=== PATIENT | male | born 1935 | race Caucasian/White ===

== ENCOUNTER → 2018-06-05 13:07 | Outpatient (CLI) | payer MEDICARE, OTHER, SELFPAY ==
--- NOTE | 2018-06-05 | DI.RAD.S_ITS ---
PROCEDURE: XR CHEST 2V INDICATIONS: COUGH TECHNIQUE: 2 views of the chest were acquired. COMPARISON: None. FINDINGS: Surgical changes and devices: None. Lungs and pleura: No pleural effusions or pneumothorax. Lungs are clear. There is a 4.3 cm soft tissue mass overlying the left vertebral phrenic angle, likely diaphragmatic eventration or hiatal hernia. There is lobular eventration of the right hemidiaphragm. Mediastinum: Mediastinal contours are normal. Heart size is normal. Aortic calcifications. Bones and chest wall: No suspicious bony abnormalities. The dorsal spondylosis. Soft tissues appear unremarkable. IMPRESSION: 1. No acute cardiopulmonary abnormality. 2. 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 3. DISH Dictated by: Jon Smith M.D. on 06/05/2018 at 14:37 Approved by: Jon Smith M.D. on 06/05/2018 at 14:39
== END ==
PROVIDERS: Visit Provider Internal Medicine
DX: R05 Cough (principal); M48.10 Ankylosing hyperostosis [Forestier], site unspecified
CPT/HCPCS: 71046

== ENCOUNTER → 2018-06-13 07:38 | Outpatient (CLI) | payer MEDICARE, OTHER, SELFPAY ==
--- NOTE | 2018-06-13 | DI.CT.S_ITS ---
PROCEDURE: CT CHEST W CON INDICATIONS: COUGH TECHNIQUE: After the administration of intravenous contrast, 5 mm thick sections acquired from the pulmonary apices to the posterior costophrenic angles. 7 mm thick coronal and sagittal MIP reformats were acquired. For radiation dose reduction, the following was used: automated exposure control, adjustment of mA and/or kV according to patient size. COMPARISON: [facility], CR, ABDOMEN 1 VIEW, 04/13/2010, 10:36. [facility], US, ABDOMEN COMPLETE, 03/31/2010, 12:59. [facility], CR, L-SPINE 2-3 VIEWS, 01/05/2010, 12:38. [facility], CT, CT-IVP, 04/13/2010, 10:29. [facility], CR, XR CHEST 2V, 06/05/2018, 12:53. FINDINGS: Image quality: Excellent. Lungs and pleura: No acute air space opacities. The radiodensity at the medial left lung base of recent plain film concern from chest x-ray 06/05/18 represents a eventration of fatty soft tissue is through a small diaphragmatic defect at the posterior medial aspect of the left diaphragm, extending cephalad into the pleural space as a result. This was previously present also a CT IVP to a slightly lesser degree 04/13/10. No pleural effusions or pneumothorax. Central and peripheral airways are patent and normal in caliber. Mediastinum: Heart size is normal. No pericardial effusion. No mediastinal or hilar adenopathy by size criteria. Thoracic aorta and central pulmonary arteries are normal in size. Esophagus is normal in caliber. No hiatal hernia. Bones and chest wall: No suspicious bony lesions. No vertebral body compression fractures. No axillary or supraclavicular adenopathy by size criteria. Thyroid gland appears normal where well visualized. Abdomen: Visualized upper abdominal solid organs appear normal except for the presence of slightly increased hydronephrosis on the left when compared to the 04/13/10 study, and stable appearing peripelvic cysts on the right. Upper abdominal bowel loops are normal in caliber. 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 No inflammation is associated, but no neoplasm is found, and this finding is only slightly increased from the comparison CT from March of 2010. Slight interval increase in moderate hydronephrosis on the left and peripelvic cysts on the right with reference to the prior CT scanning from 2009. Renal cortical thinning is not associated. 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 Dictated by: Kumar Castillo M.D. on 06/13/2018 at 12:34 Approved by: Kumar Castillo M.D. on 06/13/2018 at 12:44
== END ==
PROVIDERS: Visit Provider Internal Medicine
DX: R05 Cough (principal); N28.1 Cyst of kidney, acquired; N13.1 Hydronephrosis with ureteral stricture, not elsewhere classified
CPT/HCPCS: 71260; Q9967

== ENCOUNTER → 2022-02-21 08:35 | Outpatient (CLI) | payer MEDICARE, OTHER, SELFPAY ==
[2022-02-21 09:50] LABS: Add Manual Diff / Slide Review NO; Basophils Absolute Auto 0 /uL (0-100); Basophils Percent Auto 0.4 % (0-2); Eosinophils Absolute Auto 100 /uL (0-450); Eosinophils Percent Auto 2.6 % (2-4); Hematocrit 37.7 % (41-53); Hemoglobin 12.9 g/dL (13.5-17.5); Lymphocytes Absolute Auto 1000 /uL (1100-4500); Lymphocytes Percent Auto 25.8 % (25-40); Mean Corpuscular HGB Conc 34.1 % (30-36); Mean Corpuscular Hemoglobin 30.9 PG (26-34); Mean Corpuscular Volume 90.6 fL (80-100); Monocytes Absolute Auto 500 /uL (0-900); Monocytes Percent Auto 12.3 % (3-14); Neutrophils Absolute Auto 2200 /uL (1500-7000); Neutrophils Percent Auto 58.9 % (50-75); Platelet Count 176 X10^3/uL (150-400); Red Blood Cell Count 4.16 X10^6/uL (4.5-5.9); Red Cell Distribution Width 13.7 % (11.6-14.8); White Blood Cell Count 3.7 X10^3/uL (4.5-11.0)
[2022-02-21 10:00] LABS: Hemoglobin A1C% w Est Avg Glu 5.8 % (4.0-6.0)
[2022-02-21 10:32] LABS: Alanine Aminotransferase 20 IU/L (<50); Albumin 3.7 g/dL (3.5-5.0); Albumin Globulin Ratio 1.2 (1.0-2.8); Alkaline Phosphatase 65 U/L (38-126); Aspartate Aminotransferase 32 IU/L (17-59); BUN Creatinine Ratio 17.1 (6-22); Bilirubin Total 0.5 mg/dL (0.2-1.3); Blood Urea Nitrogen 22 mg/dL (9-20); Calcium 8.8 mg/dL (8.4-10.2); Carbon Dioxide 29 mmol/L (22-32); Chloride 107 mmol/L (98-107); Cholesterol 159 mg/dL (140-199); Estimated Glomerular Filt Rate 54 mL/min (>60); Glucose 109 mg/dL (80-110); HDL Cholesterol 53 mg/dL (40-60); HEMOLYSIS < 15 (0-50); LDL Cholesterol Calculated 90 mg/dL (<100); Sodium 141 mmol/L (137-145); Total Protein 6.7 g/dL (6.3-8.2); Triglycerides 80 mg/dL (35-150)
[2022-02-21 16:28] LABS: Creatinine Urine Random 100.5 mg/dL
[2022-02-21 16:29] LABS: Microalbumi Creatinin Ratio Ur 18.9 ug/mg CR (<30); Microalbumin Urine Random 1.9 mg/dL (0-1.6)
== END ==
PROVIDERS: PCP Family Medicine; Referring Provider Family Medicine; Visit Provider Family Medicine
DX: E78.2 Mixed hyperlipidemia (principal); R73.9 Hyperglycemia, unspecified; I10 Essential (primary) hypertension
CPT/HCPCS: 36415; 80053; 80061; 82043; 82570; 83036; 85025

== ENCOUNTER → 2022-05-18 09:53 | Outpatient (CLI) | payer MEDICARE, OTHER, SELFPAY ==
[2022-05-18 11:01] LABS: Add Manual Diff / Slide Review NO; Basophils Absolute Auto 0 /uL (0-100); Basophils Percent Auto 0.6 % (0-2); Eosinophils Absolute Auto 100 /uL (0-450); Eosinophils Percent Auto 3.4 % (2-4); Hematocrit 39.9 % (41-53); Hemoglobin 13.2 g/dL (13.5-17.5); Lymphocytes Absolute Auto 1100 /uL (1100-4500); Lymphocytes Percent Auto 31.2 % (25-40); Mean Corpuscular Hemoglobin 30.2 PG (26-34); Mean Corpuscular Volume 91.4 fL (80-100); Monocytes Absolute Auto 400 /uL (0-900); Monocytes Percent Auto 10.4 % (3-14); Neutrophils Absolute Auto 2000 /uL (1500-7000); Neutrophils Percent Auto 54.4 % (50-75); Platelet Count 182 X10^3/uL (150-400); Red Blood Cell Count 4.37 X10^6/uL (4.5-5.9); Red Cell Distribution Width 13.9 % (11.6-14.8); White Blood Cell Count 3.6 X10^3/uL (4.5-11.0)
[2022-05-18 11:20] LABS: Alanine Aminotransferase 21 IU/L (<50); Albumin 3.9 g/dL (3.5-5.0); Albumin Globulin Ratio 1.3 (1.0-2.8); Alkaline Phosphatase 65 U/L (38-126); Aspartate Aminotransferase 30 IU/L (17-59); Bilirubin Total 0.6 mg/dL (0.2-1.3); Blood Urea Nitrogen 32 mg/dL (9-20); Calcium 8.7 mg/dL (8.4-10.2); Carbon Dioxide 27 mmol/L (22-32); Chloride 106 mmol/L (98-107); Estimated Glomerular Filt Rate 49 mL/min (>60); Globulin 2.9 g/dL (1.7-4.1); Glucose 85 mg/dL (80-110); HEMOLYSIS < 15 (0-50); Potassium 4.1 mmol/L (3.4-5.1); Sodium 142 mmol/L (137-145); Total Protein 6.8 g/dL (6.3-8.2)
== END ==
PROVIDERS: PCP Family Medicine; Referring Provider Internal Medicine; Visit Provider Internal Medicine
DX: E78.2 Mixed hyperlipidemia (principal); I10 Essential (primary) hypertension; N18.30 Chronic kidney disease, stage 3 unspecified
CPT/HCPCS: 36415; 80053; 85025

== ENCOUNTER → 2023-05-19 12:29 | Outpatient (CLI) | payer MEDICARE, OTHER, SELFPAY ==
[2023-05-19 13:06] LABS: Add Manual Diff / Slide Review NO; Basophils Absolute Auto 0 /uL (0-100); Basophils Percent Auto 0.4 % (0-2); Eosinophils Absolute Auto 100 /uL (0-450); Eosinophils Percent Auto 2.8 % (2-4); Hematocrit 40.7 % (41-53); Hemoglobin 13.9 g/dL (13.5-17.5); Lymphocytes Absolute Auto 1500 /uL (1100-4500); Lymphocytes Percent Auto 34.9 % (25-40); Mean Corpuscular HGB Conc 34.1 % (30-36); Mean Corpuscular Hemoglobin 30.7 PG (26-34); Monocytes Absolute Auto 300 /uL (0-900); Monocytes Percent Auto 8.1 % (3-14); Neutrophils Absolute Auto 2300 /uL (1500-7000); Neutrophils Percent Auto 53.8 % (50-75); Platelet Count 184 X10^3/uL (150-400); Red Blood Cell Count 4.52 X10^6/uL (4.5-5.9); Red Cell Distribution Width 13.5 % (11.6-14.8); White Blood Cell Count 4.2 X10^3/uL (4.5-11.0)
[2023-05-19 13:16] LABS: Alanine Aminotransferase 24 IU/L (<50); Albumin 3.8 g/dL (3.5-5.0); Albumin Globulin Ratio 1.2 (1.0-2.8); Alkaline Phosphatase 69 U/L (38-126); Aspartate Aminotransferase 30 IU/L (17-59); BUN Creatinine Ratio 15.3 (6-22); Bilirubin Total 0.9 mg/dL (0.2-1.3); Blood Urea Nitrogen 25 mg/dL (9-20); Calcium 8.6 mg/dL (8.4-10.2); Carbon Dioxide 30 mmol/L (22-32); Chloride 104 mmol/L (98-107); Cholesterol 165 mg/dL (140-199); Estimated Glomerular Filt Rate 41 mL/min (>60); Globulin 3.2 g/dL (1.7-4.1); Glucose 101 mg/dL (80-110); HDL Cholesterol 51 mg/dL (40-60); HEMOLYSIS 15 (0-50); LDL Cholesterol Calculated 91 mg/dL (<100); Potassium 3.8 mmol/L (3.4-5.1); Sodium 139 mmol/L (137-145); Triglycerides 115 mg/dL (35-150)
[2023-05-19 13:42] LABS: Creatinine Urine Random 152.2 mg/dL
[2023-05-19 13:46] LABS: TSH w/ Reflex to FT4 1.92 uIU/mL (0.47-4.68)
[2023-05-19 13:47] LABS: Prostate Specific Antigen Scrn 4.93 ng/mL (0.1-4.0)
[2023-05-19 14:00] LABS: Microalbumi Creatinin Ratio Ur 12.4 ug/mg CR (<30); Microalbumin Urine Random 1.9 mg/dL (0-1.6)
== END ==
PROVIDERS: PCP Family Medicine; Referring Provider Family Medicine; Visit Provider Family Medicine
DX: E78.5 Hyperlipidemia, unspecified (principal); Z12.5 Encounter for screening for malignant neoplasm of prostate; I10 Essential (primary) hypertension; N18.30 Chronic kidney disease, stage 3 unspecified; R26.89 Other abnormalities of gait and mobility
CPT/HCPCS: 36415; 80053; 80061; 82043; 82570; 84443; 85025; G0103

== ENCOUNTER → 2023-06-08 07:57 | Outpatient (CLI) | payer MEDICARE, OTHER, SELFPAY ==
[2023-06-08 09:16] LABS: Alanine Aminotransferase 22 IU/L (<50); Albumin 3.6 g/dL (3.5-5.0); Albumin Globulin Ratio 1.3 (1.0-2.8); Alkaline Phosphatase 68 U/L (38-126); Aspartate Aminotransferase 29 IU/L (17-59); BUN Creatinine Ratio 14.6 (6-22); Bilirubin Total 0.8 mg/dL (0.2-1.3); Blood Urea Nitrogen 20 mg/dL (9-20); Calcium 8.6 mg/dL (8.4-10.2); Carbon Dioxide 29 mmol/L (22-32); Chloride 103 mmol/L (98-107); Estimated Glomerular Filt Rate 50 mL/min (>60); Globulin 2.7 g/dL (1.7-4.1); Glucose 93 mg/dL (80-110); HEMOLYSIS < 15 (0-50); Potassium 3.7 mmol/L (3.4-5.1); Sodium 138 mmol/L (137-145); Total Protein 6.3 g/dL (6.3-8.2)
== END ==
PROVIDERS: PCP Family Medicine; Referring Provider Family Medicine; Visit Provider Family Medicine
DX: E78.5 Hyperlipidemia, unspecified (principal); I10 Essential (primary) hypertension; N18.30 Chronic kidney disease, stage 3 unspecified
CPT/HCPCS: 36415; 80053

== ENCOUNTER → 2023-12-29 12:02 | Outpatient (CLI) | payer MEDICARE, OTHER, SELFPAY ==
--- NOTE | 2023-12-29 12:07 | DI.RAD.S_ITS ---
PROCEDURE: XR CERVICAL SPINE 2V OR 3V INDICATIONS: chronic neck pain TECHNIQUE: 3 view(s) of the cervical spine were acquired. COMPARISON: None. FINDINGS: Bones: No fractures or dislocations to the C7 level. The lateral masses of C1 appear intact on the odontoid view. No suspicious bony lesions. Grade 1 anterolisthesis of C3 on C4. Moderate disc height loss at C2-3 , C4-5, C6-7. Mild disc height loss at remaining levels. Diffuse facet arthrosis, most prominent at C3 through C7. Soft tissues: No prevertebral soft tissue swelling. 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 Dictated by: Onur Solorio M.D. on 12/29/2023 at 13:50 Approved by: Onur Solorio M.D. on 12/29/2023 at 13:51
== END ==
PROVIDERS: PCP Family Medicine; Referring Provider Family Medicine; Visit Provider Family Medicine
DX: M47.812 Spondylosis without myelopathy or radiculopathy, cervical region (principal); E78.5 Hyperlipidemia, unspecified; I12.9 Hypertensive chronic kidney disease with stage 1 through stage 4 chronic kidney disease, or unspecified chronic kidney disease; N18.30 Chronic kidney disease, stage 3 unspecified; M50.31 Other cervical disc degeneration, high cervical region; G89.29 Other chronic pain
CPT/HCPCS: 72040

== ENCOUNTER 2024-07-20 14:22 | Emergency (ER) | payer MEDICARE, OTHER, SELFPAY ==
[2024-07-20 14:26] VITALS: BP 187/83; PULSE 61; RESP 16; O2SAT 100; BMI 23.6
--- NOTE | 2024-07-20 14:44 | DI.CT.S_ITS ---
PROCEDURE: CT HEAD/BRAIN WO CON INDICATIONS: fall facial bruising TECHNIQUE: Noncontrast 4.5 mm thick angled axial sections acquired from the foramen magnum to the vertex, with coronal and sagittal reformats. For radiation dose reduction, the following was used: automated exposure control, adjustment of mA and/or kV according to patient size. COMPARISON: None. FINDINGS: Image quality: Diagnostic. CSF spaces: Basal cisterns are patent. No extra-axial fluid collections. The ventricles are symmetric in size and shape. Brain: No intracranial bleeds or masses. There is cerebral volume loss for age, with resultant ventricular and sulcal prominence. There are periventricular and deep white matter chronic small vessel ischemic changes. There is intracranial internal carotid artery atherosclerosis. Skull and face: There is a scalp hematoma seen within the right temporal region. No regional fracture can be seen. Calvarium and visualized facial bones appear intact, without suspicious lesions. Sinuses: Visualized sinuses and mastoids are clear. IMPRESSION: Right temporal scalp hematoma seen, yet without an associated fracture. No acute intracranial hemorrhage is seen. No acute intracranial process is seen. Dictated by: Juliocesar Burton M.D. on 07/20/2024 at 14:07 Approved by: Juliocesar Burton M.D. on 07/20/2024 at 14:08
--- NOTE | 2024-07-20 15:09 | EKG_ITS ---
[facility] [address] [address] [place] [id number] Test Date: 2024-07-20 Pat Name: Eddie Contreras Department: [facility] Room: Gender: Male Stem Roller: JOSELINE : 1935 Requested By: Order Number: [id number] Reading MD: Luisito Aleman MD Measurements Intervals Kiana Rate: 52 P: 83 OK: 234 QRS: -4 QRSD: 92 T: 40 QT: 454 QTc: 422 Interpretive Statements Sinus bradycardia with 1st degree AV block T wave abnormality, consider anterior ischemia NO PRIOR TRACING Electronically Signed On 07-22-2024 7:52:06 PDT by Luisito Aleman MD
--- NOTE | 2024-07-20 15:09 | DI.CT.S_ITS ---
PROCEDURE: CT ANGIO HEAD AND NECK INDICATIONS: Syncope TECHNIQUE: After the administration of intravenous contrast, 1 mm thick sections acquired from the aortic arch through the [place] of [place]. 3-dimensional ocspaxy-dfjldouxs-vdiufaqxyh (MIP) and/or volume rendering reformats were acquired of the central intracranial vasculature and neck separately. For radiation dose reduction, the following was used: automated exposure control, adjustment of mA and/or kV according to patient size. COMPARISON: [facility], CT, CT HEAD/BRAIN WO CON, 07/20/2024, 14:52. FINDINGS: Image quality: There is artifact associated with the metallic hardware. Artifact from the metallic hardware is reduced by metal reconstruction algorithm. BRAIN: CSF spaces: Ventricles are normal in size and shape. Basal cisterns are patent. No extra-axial fluid collections. Brain: No significant abnormality of the brain can be seen. Skull and face: Significant right-sided scalp hematoma can be seen, including involving the right face. No associated regional fracture can be seen. Calvarium and facial bones appear intact, without suspicious lesions. Orbits appear normal. Sinuses: Sinuses and mastoids are clear. HEAD CT ANGIOGRAPHY: Anterior circulation: Intracranial internal carotid arteries are normal in size and flow. The flow within the paired anterior cerebral arteries is normal and symmetric. The flow within the middle cerebral arteries is normal and symmetric. The anterior communicating artery is seen. No aneurysms are seen. Posterior circulation: Visualized portions of the vertebral arteries demonstrate normal caliber, and join to form a normal appearing basilar artery. Flow within the posterior cerebral arteries is normal and symmetric. No aneurysms are seen. NECK CT ANGIOGRAPHY: Carotid system: The great vessels demonstrate a conventional anatomy as they arise from the aortic arch. The origins of the common carotid arteries appear patent. The common carotid arteries demonstrate normal caliber and courses. The bifurcation regions are both widely patent. The internal carotid arteries demonstrate normal calibers and courses. Posterior circulation: The origins of the vertebral arteries both appear widely patent. The more superior extracranial portions of both vertebral arteries also demonstrate normal courses and calibers. They join to form a normal appearing basilar artery. Soft tissues: Visualized neck soft tissues demonstrate no suspicious abnormalities. Bones: No suspicious bony lesions. Visualized cervical spine appears normally aligned. Prominent generalized cervical spine degenerative change can be seen. No displaced fracture is identified. IMPRESSION: No significant intracranial arterial abnormality is seen. No significant abnormality is seen within the arteries of the neck. A significant right-sided scalp hematoma is again seen, with partial involvement of the right face. No associated fracture is seen. Prominent generalized cervical spine degenerative changes are seen, without an acute fracture seen. Any quantitative measurements of stenosis were performed using NASCET criteria. Dictated by: Juliocesar Burton M.D. on 07/20/2024 at 15:16 Approved by: Juliocesar Burton M.D. on 07/20/2024 at 15:19
--- NOTE | 2024-07-20 15:11 | ED.FALL ---
HPI - Fall <Savannah Mendoza PA-C - Last Filed: 07/20/24 18:08> General Chief Complaint: Fall Stated Complaint: fell and hit head this morning Time Seen by Provider: 07/20/24 14:44 Related Data Previous Rx's Medication Instructions Recorded donepezil 5 mg tablet 5 mg PO DAILY #90 tabs 12/29/23 memantine 5 mg tablet 5 mg PO QPM #90 tabs 12/29/23 ciclopirox 8 % topical solution 1 applic topical DAILY #6.6 mL 02/19/24 hydrochlorothiazide 12.5 mg tablet 12.5 mg PO DAILY #90 tabs 06/21/24 losartan 50 mg tablet 50 mg PO DAILY #90 tabs 06/21/24 simvastatin 20 mg tablet (Zocor) 20 mg PO QDAY #90 tabs 06/21/24 Allergies Allergy/AdvReac Type Severity Reaction Status Date / Time No Known Drug Allergies Allergy Verified 07/24/24 09:23 Review of Systems <Savannah Mendoza PA-C - Last Filed: 07/20/24 18:08> Review of Systems Narrative: Negative except as above Musculoskeletal Comments: Facial trauma Neurologic Comments: Possible syncope, felt dizzy prior to fall Patient History <Savannah Mendoza PA-C - Last Filed: 07/20/24 18:08> Medical History Cervical spondylosis Neck pain Onychomycosis Actinic keratoses CKD (chronic kidney disease) stage 3, GFR 30-59 ml/min Hyperlipidemia Hypertension Imbalance Surgical History History of hip surgery Family History Father AA (alcohol abuse) Mother Cancer Brother Cancer Social History Smoking Status: Never smoker Smoking Status: Never smoker Exam <FRANSISCA Spear Last Filed: 07/20/24 18:08> Initial Vital Signs Initial Vital Signs: Vital Signs Pulse Rate 61 07/20/24 14:26 Respiratory Rate 16 07/20/24 14:26 Blood Pressure 187/83 H 07/20/24 14:26 Pulse Oximetry 100 07/20/24 14:26 Oxygen Delivery Method Room Air 07/20/24 14:26 reviewed Const General: cooperative, healthy appearing, comfortable, well developed, well groomed, No acute distress and No in distress Nutritional Appearance: average body habitus and well nourished HENNH Head: contusion, hematoma, scalp tenderness and periorbital ecchymosis [facility] Other: Scalp hematoma in the right side, ecchymosis on the lateral side of the right eye Eyes General: Yes appearance normal, both eyes and all related structures Pupils: PERRL EOM: EOM intact bilaterally Neck Neck: normal visual inspection, supple, No midline deformity, No tender, No JVD and other (No bruits) Resp Effort & Inspection: normal respiratory effort and able to speak in complete sentences Auscultation: clear to auscultation bilaterally, no crackles, no rales, no rhonchi and no wheezes Cardio Rate: bradycardic Rhythm: regular rhythm Heart Sounds: S1 normal and S2 normal Skin Other: Patient has a scalp hematoma to the right forehead, then he has hematoma contusion to the lateral aspect of the right eye. With a large amount of bruising hematoma. Neuro General: patient alert, patient awake, patient oriented x3, oriented and gait normal Cranial Nerves: CN's II-XI intact bilaterally Cognition: normal cognition Speech: speech normal Gait: normal gait Motor: muscle tone normal throughout, strength 5/5 throughout and no pronator drift Other: Hints exam is negative, Romberg is negative, coordination is negative, Extrem Other: Range of motion, strength, pulses, cap refill preserved in the upper and lower extremities. Psych Appearance: grossly normal and well kempt Mental Status: mental status grossly normal Speech and Movement: speech and movement normal Mood: congruent mood Affect: normal affect Attitude: cooperative Thought Process: normal Thought Content: normal Judgment: judgment good <Bushra Nicole DO - Last Filed: 07/27/24 07:12> Initial Vital Signs Initial Vital Signs: Vital Signs Pulse Rate 61 07/20/24 14:26 Respiratory Rate 16 07/20/24 14:26 Blood Pressure 187/83 H 07/20/24 14:26 Pulse Oximetry 100 07/20/24 14:26 Oxygen Delivery Method Room Air 07/20/24 14:26 Scores <Savannah Mendoza PA-C - Last Filed: 07/20/24 18:08> GCS Citation: 15 Course <Savannah Mendoza PA-C - Last Filed: 07/20/24 18:08> Orders Ordered: Discontinued Medications Sodium Chloride (Normal Saline 0.9%) 500 mls @ 1,000 mls/hr IV BOLUS ONE Stop: 07/20/24 16:18 Last Infusion: 07/20/24 16:37 Dose: Infused Documented By: Infusion: 07/20/24 16:06 Dose: 999 mls/hr Documented By: Infusion: 07/20/24 15:54 Dose: 0 mls/hr Documented By: Admin: 07/20/24 15:53 Dose: 1,000 mls/hr Documented By: RB Vital Signs Vital signs: Vital Signs - 8 hr 07/20/24 14:26 Pulse Rate 61 Respiratory Rate 16 Blood Pressure 187/83 H Pulse Oximetry 100 Oxygen Delivery Method Room Air <Bushra Nicole DO - Last Filed: 07/27/24 07:12> Orders Ordered: Discontinued Medications Sodium Chloride (Normal Saline 0.9%) 500 mls @ 1,000 mls/hr IV BOLUS ONE Stop: 07/20/24 16:18 Last Infusion: 07/20/24 16:37 Dose: Infused Documented By: Infusion: 07/20/24 16:06 Dose: 999 mls/hr Documented By: Infusion: 07/20/24 15:54 Dose: 0 mls/hr Documented By: Admin: 07/20/24 15:53 Dose: 1,000 mls/hr Documented By: RB Vital Signs Vital signs: Vital Signs - 8 hr 07/20/24 14:26 Pulse Rate 61 Respiratory Rate 16 Blood Pressure 187/83 H Pulse Oximetry 100 Oxygen Delivery Method Room Air MDM - Fall <Savannah Mendoza PA-C - Last Filed: 07/20/24 18:08> Lab Data 07/20/24 15:16 07/20/24 15:16 Labs: Lab Results 07/20/24 07/20/24 Range/Units 15:16 17:15 WBC 4.6 (4.5-11.0) X10^3/uL RBC 4.07 L (4.5-5.9) X10^6/uL Hgb 12.6 L (13.5-17.5) g/dL Hct 37.5 L (41-53) % MCV 92.1 (80-100) fL MCH 31.0 (26-34) PG MCHC 33.6 (30-36) % RDW 13.6 (11.6-14.8) % Plt Count 191 (150-400) X10^3/uL Neut % (Auto) 67.7 (50-75) % Lymph % (Auto) 21.6 L (25-40) % [place] % (Auto) 8.4 (3-14) % Eos % (Auto) 0.9 L (2-4) % Baso % (Auto) 1.4 (0-2) % Neut # (Auto) 3100 (2814-3207) /uL Lymph # (Auto) 1000 L (3437-8850) /uL [place] # (Auto) 400 (0-900) /uL Eos # (Auto) 0 (0-450) /uL Baso # (Auto) 100 (0-100) /uL Sodium 135 L (137-145) mmol/L Potassium 3.8 (3.4-5.1) mmol/L Chloride 103 (98-107) mmol/L Carbon Dioxide 27 (22-32) mmol/L BUN 34 H (9-20) mg/dL Creatinine 1.43 H (0.66-1.25) mg/dL Estimated GFR 47 L (>60) mL/min BUN/Creatinine Ratio 23.8 H (6-22) Glucose 123 H (80-110) mg/dL Calcium 9.3 (8.4-10.2) mg/dL Total Bilirubin 0.5 (0.2-1.3) mg/dL AST 33 (17-59) IU/L ALT 25 (<50) IU/L Alkaline Phosphatase 64 (38-126) U/L Troponin I 0.035 H 0.040 H (0.01-0.034) ng/mL Total Protein 6.8 (6.3-8.2) g/dL Albumin 3.7 (3.5-5.0) g/dL Globulin 3.1 (1.7-4.1) g/dL Albumin/Globulin Ratio 1.2 (1.0-2.8) Initial troponin was 0.035 mildly elevated Repeat troponin was 0.[address] scan - head: Radiologist's Impression: [address] [address] [address] Scan Report Signed Patient: Eddie Contreras MR#: [id number] : 1935 Acct:[id number] Age/Sex: 88 / M Date of Service: 07/20/24 Loc: ED Accession Number: [id number] Procedure: CT head/brain wo con Ordering Provider: Savannah Mendoza PA-C PROCEDURE: CT HEAD/BRAIN WO CON INDICATIONS: fall facial bruising TECHNIQUE: Noncontrast 4.5 mm thick angled axial sections acquired from the foramen magnum to the vertex, with coronal and sagittal reformats. For radiation dose reduction, the following was used: automated exposure control, adjustment of mA and/or kV according to patient size. COMPARISON: None. FINDINGS: Image quality: Diagnostic. CSF spaces: Basal cisterns are patent. No extra-axial fluid collections. The ventricles are symmetric in size and shape. Brain: No intracranial bleeds or masses. There is cerebral volume loss for age, with resultant ventricular and sulcal prominence. There are periventricular and deep white matter chronic small vessel ischemic changes. There is intracranial internal carotid artery atherosclerosis. Skull and face: There is a scalp hematoma seen within the right temporal region. No regional fracture can be seen. Calvarium and visualized facial bones appear intact, without suspicious lesions. Sinuses: Visualized sinuses and mastoids are clear. IMPRESSION: Right temporal scalp hematoma seen, yet without an associated fracture. No acute intracranial hemorrhage is seen. No acute intracranial process is seen. Dictated by: Juliocesar Burton M.D. on 07/20/2024 at 14:07 Approved by: Juliocesar Burton M.D. on 07/20/2024 at 14:08 CT angio head and neck: Radiologist's Impression: [address] [address] [address] Scan Report Signed Patient: Eddie Contreras MR#: [id number] : 1935 Acct:[id number] Age/Sex: 88 / M Date of Service: 07/20/24 Loc: ED Accession Number: [id number] Procedure: CT angio head and neck Ordering Provider: Savannah Mendoza PA-C PROCEDURE: CT ANGIO HEAD AND NECK INDICATIONS: Syncope TECHNIQUE: After the administration of intravenous contrast, 1 mm thick sections acquired from the aortic arch through the [place]. 3-dimensional rwsqdtf-zvzslgnfg-dijrerudmc (MIP) and/or volume rendering reformats were acquired of the central intracranial vasculature and neck separately. For radiation dose reduction, the following was used: automated exposure control, adjustment of mA and/or kV according to patient size. COMPARISON: [facility], CT, CT HEAD/BRAIN WO CON, 07/20/2024, 14:52. FINDINGS: Image quality: There is artifact associated with the metallic hardware. Artifact from the metallic hardware is reduced by metal reconstruction algorithm. BRAIN: CSF spaces: Ventricles are normal in size and shape. Basal cisterns are patent. No extra-axial fluid collections. Brain: No significant abnormality of the brain can be seen. Skull and face: Significant right-sided scalp hematoma can be seen, including involving the right face. No associated regional fracture can be seen. Calvarium and facial bones appear intact, without suspicious lesions. Orbits appear normal. Sinuses: Sinuses and mastoids are clear. HEAD CT ANGIOGRAPHY: Anterior circulation: Intracranial internal carotid arteries are normal in size and flow. The flow within the paired anterior cerebral arteries is normal and symmetric. The flow within the middle cerebral arteries is normal and symmetric. The anterior communicating artery is seen. No aneurysms are seen. Posterior circulation: Visualized portions of the vertebral arteries demonstrate normal caliber, and join to form a normal appearing basilar artery. Flow within the posterior cerebral arteries is normal and symmetric. No aneurysms are seen. NECK CT ANGIOGRAPHY: Carotid system: The great vessels demonstrate a conventional anatomy as they arise from the aortic arch. The origins of the common carotid arteries appear patent. The common carotid arteries demonstrate normal caliber and courses. The bifurcation regions are both widely patent. The internal carotid arteries demonstrate normal calibers and courses. Posterior circulation: The origins of the vertebral arteries both appear widely patent. The more superior extracranial portions of both vertebral arteries also demonstrate normal courses and calibers. They join to form a normal appearing basilar artery. Soft tissues: Visualized neck soft tissues demonstrate no suspicious abnormalities. Bones: No suspicious bony lesions. Visualized cervical spine appears normally aligned. Prominent generalized cervical spine degenerative change can be seen. No displaced fracture is identified. IMPRESSION: No significant intracranial arterial abnormality is seen. No significant abnormality is seen within the arteries of the neck. A significant right-sided scalp hematoma is again seen, with partial involvement of the right face. No associated fracture is seen. Prominent generalized cervical spine degenerative changes are seen, without an acute fracture seen. Any quantitative measurements of stenosis were performed using NASCET criteria. Dictated by: Juliocesar Burton M.D. on 07/20/2024 at 15:16 Approved by: Juliocesar Burton M.D. on 07/20/2024 at 15:19 ECG Data Interpretation: Sinus bradycardia first-degree AV block Ventricular rate 52 beats per minute TX interval 234 milliseconds QRS duration 92 milliseconds QT and QTC 454/422 milliseconds Patient has T wave inversion in the anterior leads V1 through V3. Does not have any ST elevation noted or reciprocal changes noted. However there is no previous EKG to evaluate. Dr. Nicole-sinus rhythm rate 52 TX interval 234 QTC 422 T-wave inversions V2 V3 V4 without ST changes [place] [address] Electrocardiogram Draft Patient: Eddie Contreras MR#: [id number] : 1935 Acct:[id number] Age/Sex: 88 / M Date of Service: 07/20/24 Loc: ED Accession Number: [id number] Procedure: EKG-12 Lead Ordering Provider: Savannah Mendoza PA-C [address] [address] Test Date: 2024-07-20 Pat Name: Eddie Contreras Department: [facility] Room: Gender: Male Application Security Architect: JOSELINE : 1935 Requested By: Order Number: [id number] Reading MD: Measurements Intervals [place] Rate: 52 P: 83 [place]: 234 QRS: -4 QRSD: 92 T: 40 QT: 454 QTc: 422 Interpretive Statements Sinus bradycardia with 1st degree AV block T wave abnormality, consider anterior ischemia Repeat EKG at 5:39 p.m. Sinus bradycardia marked 46 beats per minute with a first-degree AV block TX interval 246 mEq QRS 88 milliseconds QT/QTC 454/397 Milliseconds continued inverted T-waves through the anterior leads. No changes. MDM Narrative Medical decision making narrative: Pleasant 80-year-old man presents to the emergency room department today with complaints of a fall that he sustained around 3:00 a.m.. Patient took his dog out to go to the bathroom, he tilted his head back to drink some water, and had syncope, no mechanical fall. Struck his face on either show for the cement. Has a scalp hematoma to the right side of his face. 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 He is supposed to have an MRI of his head and neck but has not been done yet. Patient got up from the concrete floor on his own, went back to bed without any issues or problems. Brought into the emergency department today by family. Currently this time the patient does not have any physical complaints. Concern for positional syncope. Patient does not have any history of heart problems. Spoke with the attending. IV insertion Head CT without negative for any acute findings CT angio head and neck with and without contrast negative for any substantial findings CBC stable no white count, H and H is stable CMP mild acute kidney injury will be hydrated IV fluids L of normal saline Troponin elevated at 0.035 repeat troponin in 2 hours 0.040 EKG which shows some flipped T-waves in anterior leads. No previous EKG. Patient does not currently of chest pain and did not have chest pain last night. We will repeat EKG and repeat his troponin at 2:00 hours unchanged Spoke with the on-call pocket machine operator Dr. Mohamud she feels that the patient can follow up with his primary care doctor. Differential diagnosis; facial contusion, acute kidney injury, syncope of unknown cause, abnormal EKG, elevated cardiac enzymes in the face of possible syncope. <Bushra Nicole, DO - Last Filed: 07/27/24 07:12> Lab Data Labs: Lab Results 07/20/24 07/20/24 Range/Units 15:16 17:15 WBC 4.6 (4.5-11.0) X10^3/uL RBC 4.07 L (4.5-5.9) X10^6/uL Hgb 12.6 L (13.5-17.5) g/dL Hct 37.5 L (41-53) % MCV 92.1 (80-100) fL MCH 31.0 (26-34) PG MCHC 33.6 (30-36) % RDW 13.6 (11.6-14.8) % Plt Count 191 (150-400) X10^3/uL Neut % (Auto) 67.7 (50-75) % Lymph % (Auto) 21.6 L (25-40) % [place] % (Auto) 8.4 (3-14) % Eos % (Auto) 0.9 L (2-4) % Baso % (Auto) 1.4 (0-2) % Neut # (Auto) 3100 (5215-7324) /uL Lymph # (Auto) 1000 L (4781-0380) /uL [place] # (Auto) 400 (0-900) /uL Eos # (Auto) 0 (0-450) /uL Baso # (Auto) 100 (0-100) /uL Sodium 135 L (137-145) mmol/L Potassium 3.8 (3.4-5.1) mmol/L Chloride 103 (98-107) mmol/L Carbon Dioxide 27 (22-32) mmol/L BUN 34 H (9-20) mg/dL Creatinine 1.43 H (0.66-1.25) mg/dL Estimated GFR 47 L (>60) mL/min BUN/Creatinine Ratio 23.8 H (6-22) Glucose 123 H (80-110) mg/dL Calcium 9.3 (8.4-10.2) mg/dL Total Bilirubin 0.5 (0.2-1.3) mg/dL AST 33 (17-59) IU/L ALT 25 (<50) IU/L Alkaline Phosphatase 64 (38-126) U/L Troponin I 0.035 H 0.040 H (0.01-0.034) ng/mL Total Protein 6.8 (6.3-8.2) g/dL Albumin 3.7 (3.5-5.0) g/dL Globulin 3.1 (1.7-4.1) g/dL Albumin/Globulin Ratio 1.2 (1.0-2.8) ECG Data Interpretation: Sinus bradycardia first-degree AV block Ventricular rate 52 beats per minute TX interval 234 milliseconds QRS duration 92 milliseconds QT and QTC 454/422 milliseconds Patient has T wave inversion in the anterior leads V1 through V3. Does not have any ST elevation noted or reciprocal changes noted. However there is no previous EKG to evaluate. Dr. Nicole-sinus rhythm rate 52 TX interval 234 QTC 422 T-wave inversions V2 V3 V4 without ST changes no priors to compare [address] [address] Electrocardiogram Draft Patient: Eddie Contreras MR#: [id number] : 1935 Acct:[id number] Age/Sex: 88 / M Date of Service: 07/20/24 Loc: ED Accession Number: [id number] Procedure: EKG-12 Lead Ordering Provider: Savannah Mendoza PA-C [address] [address] Test Date: 2024-07-20 Pat Name: Eddie Contreras Department: [facility] Room: Gender: Male Application Security Architect: JOSELINE : 1935 Requested By: Order Number: [id number] Reading MD: Measurements Intervals [place] Rate: 52 P: 83 [place]: 234 QRS: -4 QRSD: 92 T: 40 QT: 454 QTc: 422 Interpretive Statements Sinus bradycardia with 1st degree AV block T wave abnormality, consider anterior ischemia Discharge Plan Departure Patient Disposition: Home Clinical Impression: Acute kidney injury Syncope Qualifiers: Syncope type: unspecified Qualified Code(s): R55 - Syncope and collapse Fall Qualifiers: Encounter type: initial encounter Qualified Code(s): W19.XXXA - Unspecified fall, initial encounter Facial contusion Qualifiers: Encounter type: initial encounter Qualified Code(s): S00.83XA - Contusion of other part of head, initial encounter Activity Restrictions/Additional Instructions: Please make arrangements to follow up with her primary care doctor Here in the emergency room department your lab work showed that you had acute kidney injury. Please stay hydrated. Your initial EKG showed some flipped T-waves in your leads across the anterior portion of your chest. Please follow-up with your primary care doctor to discuss a cardiology consult. Your initial cardiac enzymes Your head CT was negative for any acute findings CT angio of your head and neck Prescriptions: No Action ciclopirox 8 % solution 1 applic topical DAILY Qty: 6.6 1RF Rx Instructions: Apply to affected nails and adjacent skin once daily. Remove with alcohol every 7 days; continue therapy until nail clearance (maximum duration: 48 weeks) donepezil 5 mg tablet 5 mg PO DAILY Qty: 90 3RF memantine 5 mg tablet 5 mg PO QPM Qty: 90 3RF hydrochlorothiazide 12.5 mg tablet 12.5 mg PO DAILY Qty: 90 3RF Rx Instructions: Stop 25mg hydrochlorothiazide. losartan 50 mg tablet 50 mg PO DAILY Qty: 90 3RF simvastatin [Zocor] 20 mg tablet 20 mg PO QDAY Qty: 90 3RF Referrals: Jon Combs MD [Primary Care Provider] - Stand Alone Forms: Patient Portal/API ED Sign-out <Bushra Nicole, - Last Filed: 07/27/24 07:12> Cosign ED Attending Cosignature Attestation: Patient seen evaluated by myself. Sounds as though he had a syncopal episode 3 on this morning while taking out dog. He went to drink some water fell down and hit his head. He is significant contusion the right side he is otherwise very active. He has no chest pain or palpitations. Workup does show indeterminate troponin at 0.035 with T-wave inversions in precordial leads. There is no prior EKG to compare to. Patient is completely asymptomatic Discussed case with LILIANE Mendoza. Repeating troponin and EKG. Repeat troponin 0.040 minimal increase Discussion with Cardiology by LILIANE Mendoza
[2024-07-20 15:27] LABS: Add Manual Diff / Slide Review NO; Basophils Absolute Auto 100 /uL (0-100); Basophils Percent Auto 1.4 % (0-2); Eosinophils Absolute Auto 0 /uL (0-450); Eosinophils Percent Auto 0.9 % (2-4); Hematocrit 37.5 % (41-53); Hemoglobin 12.6 g/dL (13.5-17.5); Lymphocytes Absolute Auto 1000 /uL (1100-4500); Lymphocytes Percent Auto 21.6 % (25-40); Mean Corpuscular HGB Conc 33.6 % (30-36); Mean Corpuscular Volume 92.1 fL (80-100); Monocytes Absolute Auto 400 /uL (0-900); Monocytes Percent Auto 8.4 % (3-14); Neutrophils Absolute Auto 3100 /uL (1500-7000); Neutrophils Percent Auto 67.7 % (50-75); Platelet Count 191 X10^3/uL (150-400); Red Blood Cell Count 4.07 X10^6/uL (4.5-5.9); Red Cell Distribution Width 13.6 % (11.6-14.8); White Blood Cell Count 4.6 X10^3/uL (4.5-11.0)
[2024-07-20 15:41] LABS: Alanine Aminotransferase 25 IU/L (<50); Albumin 3.7 g/dL (3.5-5.0); Albumin Globulin Ratio 1.2 (1.0-2.8); Alkaline Phosphatase 64 U/L (38-126); Aspartate Aminotransferase 33 IU/L (17-59); BUN Creatinine Ratio 23.8 (6-22); Bilirubin Total 0.5 mg/dL (0.2-1.3); Blood Urea Nitrogen 34 mg/dL (9-20); Calcium 9.3 mg/dL (8.4-10.2); Carbon Dioxide 27 mmol/L (22-32); Chloride 103 mmol/L (98-107); Estimated Glomerular Filt Rate 47 mL/min (>60); Globulin 3.1 g/dL (1.7-4.1); Glucose 123 mg/dL (80-110); HEMOLYSIS < 15 (0-50); Potassium 3.8 mmol/L (3.4-5.1); Sodium 135 mmol/L (137-145); Total Protein 6.8 g/dL (6.3-8.2)
[2024-07-20] MEDS: SODIUM CHLORIDE 0.9% 500 ML 1000 ML IV (15:53)
--- NOTE | 2024-07-20 15:54 | PC.NURSE ---
Patient taken to CT by nuclear test technician.
[2024-07-20 16:20] LABS: Troponin I 0.035 ng/mL (0.01-0.034)
--- NOTE | 2024-07-20 17:39 | EKG_ITS ---
[place] [address] [place] [address] Test Date: 2024-07-20 Pat Name: Eddie Contreras Department: [facility] Room: Gender: Male Hair Assistant: LURDES : 1935 Requested By: Order Number: [id number] Reading MD: Luisito Aleman MD Measurements Intervals [place] Rate: 46 P: 60 [place]: 246 QRS: -17 QRSD: 88 T: 20 QT: 454 QTc: 397 Interpretive Statements Sinus bradycardia with 1st degree AV block T wave abnormality, consider anterior ischemia Electronically Signed On 07-22-2024 7:52:57 PDT by Luisito Aleman MD
[2024-07-20 18:16] VITALS: BP 163/72; PULSE 56; RESP 18; O2SAT 99
== END 2024-07-20 18:12 | disposition home or self-care (01) ==
PROVIDERS: Emergency Provider Physician Assistant; PCP Family Medicine
DX: S00.83XA Contusion of other part of head, initial encounter (principal); R55 Syncope and collapse; N17.9 Acute kidney failure, unspecified; R00.1 Bradycardia, unspecified; I44.0 Atrioventricular block, first degree; W18.30XA Fall on same level, unspecified, initial encounter
CPT/HCPCS: 70450; 70496; 70498; 80053; 84484; 85025; 93005; 93010; 96360; 99284; Q9967

== ENCOUNTER → 2025-09-02 11:32 | Outpatient (CLI) | payer MEDICARE, OTHER, SELFPAY ==
[2025-09-02 12:05] LABS: Add Manual Diff / Slide Review NO; Hematocrit 39.2 % (41-53); Hemoglobin 13.1 g/dL (13.5-17.5); Lymphocytes Absolute Auto 1200 /uL (1100-4500); Mean Corpuscular HGB Conc 33.4 % (30-36); Mean Corpuscular Hemoglobin 30.8 PG (26-34); Mean Corpuscular Volume 92.0 fL (80-100); Platelet Count 176 X10^3/uL (150-400)
[2025-09-02 12:39] LABS: Alanine Aminotransferase 20 IU/L (<50); Albumin 4.1 g/dL (3.5-5.0); Albumin Globulin Ratio 1.4 (1.0-2.8); Alkaline Phosphatase 77 U/L (38-126); Blood Urea Nitrogen 31 mg/dL (9-20); Calcium 9.1 mg/dL (8.4-10.2); Carbon Dioxide 25 mmol/L (22-32); Chloride 107 mmol/L (98-107); Cholesterol 166 mg/dL (140-199); Estimated Glomerular Filt Rate 41 mL/min (>60); Globulin 3.0 g/dL (1.7-4.1); Glucose 111 mg/dL (70-99); HDL Cholesterol 67 mg/dL (40-60); HEMOLYSIS < 15 (0-50); Potassium 3.9 mmol/L (3.4-5.1); Sodium 142 mmol/L (137-145); Total Protein 7.1 g/dL (6.3-8.2); Triglycerides 105 mg/dL (35-150)
[2025-09-02 13:06] LABS: TSH w/ Reflex to FT4 2.52 uIU/mL (0.47-4.68)
[2025-09-02 13:56] LABS: Microalbumi Creatinin Ratio Ur 26.0 ug/mg CR (<30)
== END ==
PROVIDERS: PCP Family Medicine; Referring Provider Family Medicine; Visit Provider Family Medicine
DX: E78.2 Mixed hyperlipidemia (principal); I12.9 Hypertensive chronic kidney disease with stage 1 through stage 4 chronic kidney disease, or unspecified chronic kidney disease; N18.31 Chronic kidney disease, stage 3a; R41.3 Other amnesia; R73.9 Hyperglycemia, unspecified
CPT/HCPCS: 36415; 80053; 80061; 82043; 82570; 84443; 85025